=== PATIENT | female | born 1995 ===

== ENCOUNTER 2017-09-09 14:22 | Emergency (ER) | payer SELFPAY ==
[~2017-09-09] VITALS: Ht 175.3 cm; Wt 81.6 kg
[2017-09-09] MEDS ORDERED: NS(*) 0.9% 1000 ML BAG 1,000 ML IV ONE (14:41)
--- NOTE | 2017-09-09 14:46 | ER Report ---
History and Physical Time Seen By MD: 14:32 Hx. of Stated Complaint: possible kidney stone, sob HPI/ROS CHIEF COMPLAINT: Left flank pain HISTORY OF PRESENT ILLNESS: Patient is a 21-year-old female who presents the ED with complaint of left flank pain for the past week that has been intermittent. She states that she is been slightly worse the past 2 days since she started noticed some abdominal tenderness as well as increased urinary frequency. She denies any dysuria or hematuria. She has a history of recurrent kidney stones and states that the last time she had to go into the hospital for this was in 2013 and did need to have a lithotripsy completed. She denies any nausea or vomiting. She states that she did have a little bit of nausea yesterday but did resolve after she drank some fluids. Not noted any fever. REVIEW OF SYSTEMS: Constitutional: No fever, no chills. Eyes: No discharge. ENT: No sore throat. Cardiovascular: No chest pain, no palpitations. Respiratory: No cough, no shortness of breath. Gastrointestinal: See history of present illness. Genitourinary: See history of present illness. Musculoskeletal: See history of present illness. Skin: No rashes. Neurological: No headache. Allergies: Coded Allergies: Penicillins (Verified Allergy, Intermediate, 09/09/17) rash Home Meds No Active Prescriptions or Reported Meds Reviewed Nurses Notes: Yes Old Medical Records Reviewed: Yes Hx Substance Use Disorder: No Hx Alcohol Use: No Constitutional Vital Sign - Last 24 Hours 09/09/17 14:34 Temp 99.4 Pulse 129 Resp 16 B/P (MAP) 172/117 Pulse Ox 96 O2 Delivery Room Air Intake and Output 09/09/17 09/09/17 09/10/17 15:00 23:00 07:00 Intake Total 1000 ml Balance 1000 ml Physical Exam General Appearance: The patient is alert, has no immediate need for airway protection and no signs of toxicity. Appears to be in no acute distress. Eyes: Pupils equal and round no pallor or injection. ENT, Mouth: Mucous membranes are moist. Respiratory: There are no retractions, lungs are clear to auscultation. Cardiovascular: Regular rate and rhythm. Gastrointestinal: There is slight left lower quadrant tenderness with palpation. There is slight left CVA tenderness with percussion. No rebound or guarding is present. Normal bowel sounds in all 4 quadrants. Skin: Warm and dry, no rashes. Musculoskeletal: Neck is supple non tender. Extremities are nontender, nonswollen and have full range of motion. DIFFERENTIAL DIAGNOSIS: After history and physical exam differential diagnosis was considered for abdominal pain including but not limited to appendicitis, cholecystitis, gastritis and urinary tract infection. Medical Decision Making Data Points Result Diagram: 09/09/17 1455 09/09/17 1455 Laboratory Hematology Test 09/09/17 14:55 09/09/17 15:38 Red Blood Count 4.71 M/uL (4.17-5.56) Mean Corpuscular Volume 85.8 fL (80.0-96.0) Mean Corpuscular Hemoglobin 29.4 pg (26.0-33.0) Mean Corpuscular Hemoglobin Concent 34.3 g/dL (32.0-36.0) Red Cell Distribution Width 12.7 % (11.5-14.5) Mean Platelet Volume 7.7 fL (7.2-11.1) Neutrophils (%) (Auto) 51.1 % (39.4-72.5) Lymphocytes (%) (Auto) 35.5 % (17.6-49.6) Monocytes (%) (Auto) 12.6 % (4.1-12.4) Eosinophils (%) (Auto) 0.4 % (0.4-6.7) Basophils (%) (Auto) 0.4 % (0.3-1.4) Nucleated RBC Relative Count (auto) 0.1 /100WBC Neutrophils # (Auto) 3.0 K/uL (2.0-7.4) Lymphocytes # (Auto) 2.1 K/uL (1.3-3.6) Monocytes # (Auto) 0.7 K/uL (0.3-1.0) Eosinophils # (Auto) 0.0 K/uL (0.0-0.5) Basophils # (Auto) 0.0 K/uL (0.0-0.1) Nucleated RBC Absolute Count (auto) 0.00 K/uL Sodium Level 138 mmol/L (137-145) Potassium Level 3.5 mmol/L (3.5-5.0) Chloride Level 106 mmol/L (98-107) Carbon Dioxide Level 23 mmol/L (22-31) Blood Urea Nitrogen 7 mg/dl (7-18) Creatinine 0.70 mg/dl (0.52-1.04) Glomerular Filtration Rate Calc > 60.0 Random Glucose 81 mg/dl (75-110) Calcium Level 8.9 mg/dl (8.4-10.2) Total Bilirubin 0.5 mg/dl (0.2-1.3) Aspartate Amino Transf (AST/SGOT) 22 U/L (0-35) Alanine Aminotransferase (ALT/SGPT) 30 U/L (0-56) Alkaline Phosphatase 77 U/L (0-126) Total Protein 7.2 gm/dl (6.3-8.2) Albumin 3.8 g/dl (3.5-5.0) Lipase 32 U/L (23-300) Human Chorionic Gonadotropin, Qual Negative (NEGATIVE) Urine Color Straw Urine Clarity Clear Urine pH 7.0 pH (4.8-9.5) Urine Specific Mcgee 1.008 Urine Protein Negative mg/dL (NEGATIVE) Urine Glucose (UA) Negative mg/dL (NEGATIVE) Urine Ketones Negative mg/dL (NEGATIVE) Urine Blood Negative (NEGATIVE) Urine Nitrite Negative (NEGATIVE) Urine Bilirubin Negative (NEGATIVE) Urine Urobilinogen Negative mg/dL (0.2-1.9) Urine Leukocyte Esterase Negative (NEGATIVE) Urine RBC None /HPF (0-2/HPF) Urine WBC <1 /HPF (0-5/HPF) Urine Squamous Epithelial Cells Many /LPF (</=FEW) Urine Bacteria Negative /HPF (NONE-FEW) Urine Mucus Few /HPF (NONE-FEW) Chemistry Test 09/09/17 14:55 09/09/17 15:38 White Blood Count 5.9 k/uL (4.5-11.0) Red Blood Count 4.71 M/uL (4.17-5.56) Hemoglobin 13.9 g/dL (12.0-16.0) Hematocrit 40.4 % (34.0-47.0) Mean Corpuscular Volume 85.8 fL (80.0-96.0) Mean Corpuscular Hemoglobin 29.4 pg (26.0-33.0) Mean Corpuscular Hemoglobin Concent 34.3 g/dL (32.0-36.0) Red Cell Distribution Width 12.7 % (11.5-14.5) Platelet Count 305 K/uL (150-450) Mean Platelet Volume 7.7 fL (7.2-11.1) Neutrophils (%) (Auto) 51.1 % (39.4-72.5) Lymphocytes (%) (Auto) 35.5 % (17.6-49.6) Monocytes (%) (Auto) 12.6 % (4.1-12.4) Eosinophils (%) (Auto) 0.4 % (0.4-6.7) Basophils (%) (Auto) 0.4 % (0.3-1.4) Nucleated RBC Relative Count (auto) 0.1 /100WBC Neutrophils # (Auto) 3.0 K/uL (2.0-7.4) Lymphocytes # (Auto) 2.1 K/uL (1.3-3.6) Monocytes # (Auto) 0.7 K/uL (0.3-1.0) Eosinophils # (Auto) 0.0 K/uL (0.0-0.5) Basophils # (Auto) 0.0 K/uL (0.0-0.1) Nucleated RBC Absolute Count (auto) 0.00 K/uL Glomerular Filtration Rate Calc > 60.0 Calcium Level 8.9 mg/dl (8.4-10.2) Total Bilirubin 0.5 mg/dl (0.2-1.3) Aspartate Amino Transf (AST/SGOT) 22 U/L (0-35) Alanine Aminotransferase (ALT/SGPT) 30 U/L (0-56) Alkaline Phosphatase 77 U/L (0-126) Total Protein 7.2 gm/dl (6.3-8.2) Albumin 3.8 g/dl (3.5-5.0) Lipase 32 U/L (23-300) Human Chorionic Gonadotropin, Qual Negative (NEGATIVE) Urine Color Straw Urine Clarity Clear Urine pH 7.0 pH (4.8-9.5) Urine Specific Mcgee 1.008 Urine Protein Negative mg/dL (NEGATIVE) Urine Glucose (UA) Negative mg/dL (NEGATIVE) Urine Ketones Negative mg/dL (NEGATIVE) Urine Blood Negative (NEGATIVE) Urine Nitrite Negative (NEGATIVE) Urine Bilirubin Negative (NEGATIVE) Urine Urobilinogen Negative mg/dL (0.2-1.9) Urine Leukocyte Esterase Negative (NEGATIVE) Urine RBC None /HPF (0-2/HPF) Urine WBC <1 /HPF (0-5/HPF) Urine Squamous Epithelial Cells Many /LPF (</=FEW) Urine Bacteria Negative /HPF (NONE-FEW) Urine Mucus Few /HPF (NONE-FEW) Urinalysis Test 09/09/17 15:38 Urine Color Straw Urine Clarity Clear Urine pH 7.0 pH (4.8-9.5) Urine Specific Mcgee 1.008 Urine Protein Negative mg/dL (NEGATIVE) Urine Glucose (UA) Negative mg/dL (NEGATIVE) Urine Ketones Negative mg/dL (NEGATIVE) Urine Blood Negative (NEGATIVE) Urine Nitrite Negative (NEGATIVE) Urine Bilirubin Negative (NEGATIVE) Urine Urobilinogen Negative mg/dL (0.2-1.9) Urine Leukocyte Esterase Negative (NEGATIVE) Urine RBC None /HPF (0-2/HPF) Urine WBC <1 /HPF (0-5/HPF) Urine Squamous Epithelial Cells Many /LPF (</=FEW) Urine Bacteria Negative /HPF (NONE-FEW) Urine Mucus Few /HPF (NONE-FEW) EKG/Imaging Imaging CT Abdomen/Pelvis: IMPRESSION: 1. No acute inflammatory process in the abdomen or pelvis. Normal appendix. 2. Left adrenal calcification typically from old hemorrhage or old infection. No active disease. 3. Benign-appearing cyst upper pole left kidney. Report Dictated By: Rodriguez Ureña MD at 09/09/2017 4:33 PM Report E-Signed By: Rodriguez Ureña MD at 09/09/2017 4:38 PM ED Course/Re-evaluation Clinical Indication for ER IV: Hydration ED Course Patient will be given 1 L normal saline bolus. Will obtain labs. 09/09/2017 4:02:41 pm - discussed all labs with patient. Everything is essentially normal. Will obtain a CT of the abdomen/pelvis her pain and history of kidney stones. He is pain-free and not having any nausea. 09/09/2017 4:55:09 pm - discussed normal CT results with patient. Advised her that it is uncertain what her pain is due to that may be related to muscle skull to pain or possibly a very small tiny stone was not seen. Decision to Disposition Date: Sep 09, 2017 Decision to Disposition Time: 16:56 Depart Departure Latest Vital Signs Vital Signs Date Time Temp Pulse Resp B/P (MAP) Pulse Ox O2 Delivery O2 Flow Rate FiO2 09/09/17 14:34 99.4 129 16 172/117 96 Room Air Impression: Primary Impression: Abdominal pain Condition: Improved Disposition: HOME OR SELF-CARE New Scripts No Active Prescriptions or Reported Meds Patient Instructions: Abdominal Pain (ED), Flank Pain (ED) Additional Instructions: Stay well-hydrated. Follow-up with primary care provider in 2-3 days. If having any worsening or concerning symptoms may return to the emergency department. Problem Qualifiers Primary Impression: Abdominal pain Abdominal location: unspecified location Qualified Codes: R10.9 - Unspecified abdominal pain JASIEL BOWLING PA-C Sep 09, 2017 14:46
[2017-09-09 15:14] LABS: PLATELET COUNT, AUTOMATED 305 K/uL (150-450)
[2017-09-09] MEDS ORDERED: IOPAMIDOL 76% 75 ML INFUS BTL 75 ML ONE (16:06)
[2017-09-09] MEDS ORDERED: NS 0.9% 20 ML SDV 20 ML ONE (16:06)
--- NOTE | 2017-09-09 16:43 | RADIOLOGY IMAGING REPORT ---
FACILITY: [facility] - [place] PATIENT NAME: Maureen Berger : 1995 MR: [id number] V: [id number] EXAM DATE: ORDERING PHYSICIAN: JASIEL BOWLING TECHNOLOGIST: Location: [facility] - [place] Patient: Maureen Berger : 1995 Visit/Account:[id number] Date of Sevice: 09/09/2017 ABDOMEN/PELVIS WITH CONTRAST Provided history: left flank pain, h/o kidney stones Additional pertinent history: none TECHNIQUE: Spiral scan was obtained from the lower chest through the symphysis with intravenous cont rast Contrast dose: 75 mL Isovue 370 intravenously. Source images were reformatted in the coronal and sagittal planes. Additional series performed today: none One of the following dose optimization techniques was utilized in the performance of this exam: Autom ated exposure control; adjustment of the mA and/or kV according to the patient's size; or use of an i terative reconstruction technique. Specific details can be referenced in the facility's radiology CT exam operational policy. COMPARISON STUDIES: none FINDINGS: Lower chest: Negative Liver/biliary: Negative Pancreas: Negative Spleen: Negative Adrenal glands: Benign-appearing calcification involves the left adrenal gland typically from old inf ection or old hemorrhage. Right adrenal normal. Kidneys / ureters / bladder / genitourinary / retroperitoneum: There are 2 benign-appearing cortical cyst right kidney, largest 15 mm. No obvious stones present in either kidney. Tiny stones could be ob scured by excreted contrast. No hydronephrosis. No stones in the course of the unopacified ureters. U terus and adnexa are normal. No free fluid. Bowel / peritoneum / mesenteries: Negative. Normal appendix. Vessels: negative Lymph nodes: negative Body wall: negative Bones: negative IMPRESSION: 1. No acute inflammatory process in the abdomen or pelvis. Normal appendix. 2. Left adrenal calcification typically from old hemorrhage or old infection. No active disease. 3. Benign-appearing cyst upper pole left kidney. Report Dictated By: Rodriguez Ureña MD at 09/09/2017 4:33 PM Report E-Signed By: Rodriguez Ureña MD at 09/09/2017 4:38 PM WSN:[id number]
[2017-09-09 17:00] VITALS: BP 129/95
== END 2017-09-09 17:12 | disposition home or self-care (01) ==
LOC: ER 14:31
DX: R10.9 Unspecified abdominal pain (principal)
CPT/HCPCS: 74177; 81001; 83690; 84703; 85025; 96360; 99284; J7030; J7050; Q9967; 82040; 82247; 82310; 82374; 82435; 82565; 82947; 84075; 84132; 84155; 84295; 84450; 84460; 84520

== ENCOUNTER → 2017-09-21 | Outpatient (CLI) | payer SELFPAY ==
--- NOTE | 2017-09-23 21:00 | RT HOLTER TEST ---
[facility] PATIENT NAME: WENDY ELKINS : [id number] MR: [id number] V: [id number] EXAM DATE: ORDERING PHYSICIAN: RIGO WALKER TECHNOLOGIST: Marian Hook-up date: 2017-09-21 08:46:00 Duration: 47:59:00 Test Indications: Tachycardia Medications: Zertec control 527097 QRS complexes 9 Ventricular ectopics which represent <1 % of total QRS comp. 1 Supraventricular ectopics which represent <1 % of total QRS comp. * Paced QRS complexes which represent % of total QRS comp. VENTRICULAR ECTOPY 7 Isolated 0 Bigeminal Cycles 1 Couplets 0 Runs 0 Beats in Runs * Beats LONGEST at * BPM at :: -- * Beats FASTEST at * BPM at :: -- SUPRAVENTRICULAR ECTOPY 1 Isolated 0 Couplets 0 Runs 0 Beats in Runs * Beats LONGEST at * BPM at :: -- * Beats FASTEST at * BPM at :: -- HEART RATES 49 MIN at 04:34:56 2017-09-23 93 AVG 191 MAX at 14:55:11 2017-09-22 LONGEST RR 1.400 secs at 06:22:07 2017-09-22 S-T LEVELS Channel 1 -12.800 mm MIN at 08:46:00 2017-09-21 -12.800 mm MAX at 08:46:00 2017-09-21 Channel 2 -12.800 mm MIN at 08:46:00 2017-09-21 -12.800 mm MAX at 08:46:00 2017-09-21 Channel 3 -12.800 mm MIN at 08:46:00 2017-09-21 -12.800 mm MAX at 08:46:00 2017-09-21 Intermittent Sinus tachycardia Intermittent Supraventricular tachycardia Occasional Premature ventricular complexes Confirmed by CANDELARIA DODD ([id number]) on 09/23/2017 8:59:22 PM Referred By: Overread By: CANDELARIA DODD
== END ==
LOC: RESP 02:47
PROVIDERS: ATTEND Family Medicine
DX: R00.0 Tachycardia, unspecified (principal)
CPT/HCPCS: 93225

== ENCOUNTER → 2017-09-30 | Outpatient (CLI) | payer BC ==
--- NOTE | 2017-09-30 16:14 | RADIOLOGY IMAGING REPORT ---
FACILITY: [facility] - [place] PATIENT NAME: Maureen Berger : 1995 MR: [id number] V: [id number] EXAM DATE: ORDERING PHYSICIAN: RIGO WALKER TECHNOLOGIST: Location: Patient: Maureen Berger : 1995 Visit/Account:[id number] Date of Sevice: 09/30/2017 Exam type: CHEST PA AND LAT History: Tachycardia and shortness of breath Comparison: None. Findings: The lungs are free of acute effusions, infiltrates or edema. There is no evidence of a pneumothorax or pneumomediastinum. The cardiac silhouette is normal in size. The trachea is midline. IMPRESSION: 1. No acute cardiopulmonary process is seen Report Dictated By: Simran Gibbs MD at 09/30/2017 4:08 PM Report E-Signed By: Simran Gibbs MD at 09/30/2017 4:08 PM WSN:[email or web address]
--- NOTE | 2017-10-01 21:44 | RADIOLOGY IMAGING REPORT ---
FACILITY: [facility] PATIENT NAME: WENDY ELKINS : [id number] MR: [id number] V: [id number] EXAM DATE: ORDERING PHYSICIAN: RIGO WALKER TECHNOLOGIST: Ashia Jesus EXAMINATION:TWO-DIMENSIONAL ECHOCARDIOGRAPH REASON:TACHYCARDIA/SOB 2D Measurements (normal values in centimeters) LV endLV endRV endVent.LV PostAorticLeftPercent DiastolicSystolicDiastolicSeptumWallRootAtriumShortening (3.5-5.7)(0.9-2.6)(0.6-1.1)(0.6-1.1)(2.0-3.7)(1.9-4.0)(25-35%) [id number]% STROKE VOLUME: 58ml ESTIMATED EJECTION FRACTION:74% PARASTERNAL LONG AXIS: Overall left ventricular systolic function appears to be normal. Patient appears to be in a sinus tachycardia rate of 103. Chamber sizes all appear to be normal. Aortic valve & mitral valve both appear to open normally. PARASTERNAL SHORT AXIS: Overall left ventricular function appears to be normal. No wall motion abnormalities are noted. The chamber sizes also appear to be normal. Aortic valve is probably trileaflet in configuration although it is difficult to see. Color examination of the aortic valve was unremarkable. Color examination of the pulmonic valve was unremarkable. Color examination of the tricuspid valve revealed a trace of tricuspid insufficiency present. The tricuspid regurgitation Vmax was measured at 1.59m/sec. The estimated right atrial pressure is 3mm Hg. APICAL FOUR AND TWO CHAMBER: Normal left ventricular ejection fraction. Normal chamber sizes. Mild mitral annular calcification. The aortic valve & mitral valve areas both measure within normal ranges at 2.6 & 3.0cm2. The left atrial & right atrial volumes are measured within normal ranges at 20 & 16ml/m2. SUBCOSTAL VIEW: No pericardial effusion was noted. No atrioseptal or ventriculoseptal defects were noted. Doppler examination of the mitral valve in diastole does reveal a normal pattern. OVERALL IMPRESSION: 1. Essentially normal 2 dimensional echocardiograph. The patient is in a sinus tachycardia. Her rates range between low 90's to low 100's. 2. There is normal diastolic function & normal chamber sizes. 3. A probable trileaflet aortic valve with no aortic stenosis nor any insufficiency present. 4. Mild mitral annular calcification with no insufficiency noted. 5. A trace of tricuspid insufficiency with estimated right ventricular systolic pressure within normal ranges at 13mm Hg. Dictated by: Thomas Haas M.D. on 09/30/2017 at 16:26 Transcribed by: BRAXTON on 10/01/2017 at 10:04 Approved by: Thomas Haas M.D. on 10/01/2017 at 21:43 [facility]
== END ==
LOC: US 02:01
PROVIDERS: ATTEND Family Medicine
DX: R00.0 Tachycardia, unspecified (principal); I70.0 Atherosclerosis of aorta; I07.1 Rheumatic tricuspid insufficiency
CPT/HCPCS: 71046; 93306

== ENCOUNTER → 2017-10-13 | Outpatient (CLI) | payer BC ==
--- NOTE | 2017-10-13 14:35 | RADIOLOGY IMAGING REPORT ---
FACILITY: [facility] - [place] PATIENT NAME: Maureen Berger : 1995 MR: [id number] V: [id number] EXAM DATE: ORDERING PHYSICIAN: RIGO WALKER TECHNOLOGIST: Location: Patient: Maureen Berger : 1995 Visit/Account:[id number] Date of Sevice: 10/13/2017 THYROID HISTORY: Thyroid megaly COMPARISON: None. FINDINGS: SIZE: Normal. Right lobe: 3.7 x 1.2 x 1.3 cm Left lobe: 0.4 x 0.95 x 1 cm Isthmus: 2 mm PARENCHYMA: Homogeneous. NODULES: Right lobe: * Two small cysts inferior pole the right lobe largest measuring 3 mm Left lobe: * None discrete. Isthmus: * None discrete. VASCULARITY: Within normal limits. ADDITIONAL FINDINGS: None. IMPRESSION: There are two small cysts inferior pole the right lobe the largest measuring 3 mm REFERENCE: 2015 [place] [employer] Management Guidelines for Adult Patients with Thyroid Nodules and D ifferentiated Thyroid Cancer: The [place] [employer] Guidelines Task Force on Thyroid Nodul es and Differentiated Thyroid Cancer. SONOGRAPHIC PATTERNS: * Benign: Purely cystic nodules (no solid component); estimated risk of malignancy <1 percent; no bi opsy recommended. * Very Low Suspicion: Spongiform or partially cystic nodules without any of the sonographic features described in low, intermediate, or high suspicion patterns; estimated risk of malignancy <3 percent; consider FNA at > 2 cm (Observation without FNA is also a reasonable option). * Low Suspicion: Isoechoic or hyperechoic solid nodule, or partially cystic nodule with eccentric so lid areas, without microcalcification, irregular margin or ETE (extra-thyroidal extension), or taller than wide shape; estimated risk of malignancy 5-10 percent; recommend FNA at >1.5 cm. * Intermediate Suspicion: Hypoechoic solid nodule with smooth margins without microcalcifications, E TE (extra-thyroidal extension), or taller than wide shape; estimated risk of malignancy 10-20 percent ; recommend FNA at > 1 cm. * High Suspicion: Solid hypoechoic nodule or solid hypoechoic component of a partially cystic nodule with one or more of the following features: irregular margins (infiltrative, microlobulated), microc alcifications, taller than wide shape, rim calcifications with small extrusive soft tissue component, evidence of ETE (extra-thyroidal extension); estimated risk of malignancy >70-90 percent; recommend FNA at > 1 cm. NOTES: * Although a sonographically suspicious subcentimeter thyroid nodule without evidence of extrathyroi sam extension or sonographically suspicious lymph nodes may be observed with close sonographic follow -up rather than pursuing immediate FNA, patient age and preference may modify decision-making. A > 50% interval increase in nodule volume and/or development of new suspicious sonographic features are felt to be a valid reasons for potential re-aspiration of a nodule previously shown to have benig n FNA cytology. Report Dictated By: Simran Gibbs MD at 10/13/2017 2:30 PM Report E-Signed By: Simran Gibbs MD at 10/13/2017 2:31 PM WSN:[id number]
== END ==
LOC: US 00:29
PROVIDERS: ATTEND Family Medicine
DX: E04.9 Nontoxic goiter, unspecified (principal)
CPT/HCPCS: 76536

== ENCOUNTER → 2017-11-11 | Outpatient (CLI) | payer BC | LOC: LAB 08:09 | PROVIDERS: ATTEND Internal Medicine Cardiovascular Disease | DX: I10 Essential (primary) hypertension (principal) | CPT/HCPCS: 36415; 82384 ==